=== PATIENT | female | born 1980 | race Caucasian/White ===

== ENCOUNTER 2021-11-24 04:50 | Day surgery (SDC) | payer OTHER ==
[2021-11-20 08:38] VITALS: BMI 26.4
[2021-11-24] MEDS ORDERED: LIDOCAINE HCL 1%, 10 MG/ML (20ML VIAL) ONE ×2 (10:37→12:55)
[2021-11-24] MEDS ORDERED: METHYLENE BLUE 50 MG/10 ML AMPUL ONE (10:37)
[2021-11-24] MEDS ORDERED: ISOSULFAN BLUE 50 MG/5 ML VIAL SQ ONE (10:38)
[2021-11-24] MEDS ORDERED: LIDOCAINE HCL/PF (2%) 40 MG/2 ML VIAL ONE (12:28)
[2021-11-24] MEDS ORDERED: PROPOFOL 20 ML ONE (12:28)
[2021-11-24] MEDS ORDERED: DEXAMETHASONE SOD PHOSPHATE 4 MG/1 ML VIAL ONE (12:28)
[2021-11-24] MEDS ORDERED: MIDAZOLAM HCL 2 MG/2 ML SINGLE DOSE VIAL ONE (12:29)
[2021-11-24] MEDS ORDERED: ceFAZolin SODIUM 1 GM VIAL ONE ×2 (12:29)
[2021-11-24] MEDS ORDERED: ONDANSETRON 4 MG/2 ML VIAL ONE ×2 (12:29→15:34)
[2021-11-24] MEDS ORDERED: SODIUM CHLORIDE 0.9% P/F 10 ML VIAL IJ ONE (12:30)
[2021-11-24] MEDS ORDERED: ONDANSETRON 4 MG/2 ML VIAL IVPUSH PRN (12:48)
[2021-11-24] MEDS ORDERED: LACTATED RINGERS SOLUTION 1,000 ML IV SCH (13:00)
[2021-11-24] MEDS ORDERED: ceFAZolin SODIUM 1 GM VIAL IVPB ONE (13:20)
[2021-11-24] MEDS ORDERED: LIDOCAINE HCL 1%, 10 MG/ML (20ML VIAL) INF ONE ×2 (13:24)
[2021-11-24] MEDS ORDERED: BACITRACIN 15 GM TUBE TOPICAL OINTMENT ONE (14:17)
[2021-11-24] MEDS ORDERED: BACITRACIN 15 GM TUBE TOPICAL OINTMENT TP ONE (14:40)
[2021-11-24 19:53] VITALS: BP 122/73; PULSE 80; RESP 16; TEMP 97.1
== END 2021-11-24 19:30 | disposition home or self-care (01) ==
LOC: JASU-SURG 04:50
PROVIDERS: ATTEND Surgery
PROC: 0HBU0ZX Excision of Left Breast, Open Approach, Diagnostic (ICD-10-PCS; principal; 2021-11-24 11:30)
DX: D24.2 Benign neoplasm of left breast (principal)
CPT/HCPCS: 19281; 19282; 76098-TC-FY; 81025; 88305-TC; 88307-TC; 94760; Q9968

== ENCOUNTER 2023-03-09 04:30 | Day surgery (SDC) | payer OTHER ==
[2023-02-18 17:23] VITALS: BMI 28.9
[2023-03-09] MEDS ORDERED: LIDOCAINE HCL 1%, 10 MG/ML (20ML VIAL) ONE (11:01)
[2023-03-09] MEDS ORDERED: ACETAMINOPHEN INJECTION 100 ML IVPB ONE (12:45)
[2023-03-09] MEDS ORDERED: MIDAZOLAM HCL 2 MG/2 ML SINGLE DOSE VIAL ONE (12:47)
[2023-03-09] MEDS ORDERED: SUCCINYLCHOLINE CHLORIDE 200 MG/10 ML SYRINGE ONE (12:47)
[2023-03-09] MEDS ORDERED: PROPOFOL 40 ML ONE (12:47)
[2023-03-09] MEDS ORDERED: ceFAZolin SODIUM 1 GM VIAL IVPB ONE (13:02)
[2023-03-09] MEDS ORDERED: LIDOCAINE HCL 1%, 10 MG/ML (50 mL VIAL) INF ONE ×3 (13:04→13:07)
[2023-03-09] MEDS ORDERED: HYDROmorphone HCl 2 MG/ML VIAL ONE (13:13)
[2023-03-09] MEDS ORDERED: ONDANSETRON 4 MG/2 ML VIAL ONE (13:15)
[2023-03-09] MEDS ORDERED: DEXAMETHASONE SOD PHOSPHATE 4 MG/1 ML VIAL ONE (13:15)
[2023-03-09] MEDS ORDERED: LIDOCAINE HCL/PF 2% SDV 5ML VIAL ONE (13:15)
[2023-03-09] MEDS ORDERED: ceFAZolin SODIUM 1 GM VIAL ONE (13:15)
[2023-03-09] MEDS ORDERED: SODIUM CHLORIDE 0.9% P/F 10 ML VIAL IJ ONE (13:15)
[2023-03-09] MEDS ORDERED: BACITRACIN ZINC 15 GM TUBE TOPICAL OINTMENT ONE (13:21)
[2023-03-09] MEDS ORDERED: BACITRACIN 0.9 GM PACKET TP ONE (13:22)
[2023-03-09] MEDS ORDERED: ONDANSETRON 4 MG/2 ML VIAL IVPUSH PRN (13:41)
[2023-03-09] MEDS ORDERED: oxyCODONE HCL 5 MG TABLET PO PRN (13:41)
[2023-03-09] MEDS ORDERED: LACTATED RINGERS SOLUTION 1,000 ML IV SCH (13:45)
[2023-03-09 14:53] VITALS: RESP 18
[2023-03-09 15:17] VITALS: BP 113/72; PULSE 88; TEMP 97.3
== END 2023-03-09 15:25 | disposition home or self-care (01) ==
LOC: JASU-SURG 04:30
PROVIDERS: ATTEND Surgery
PROC: 0HBT0ZX Excision of Right Breast, Open Approach, Diagnostic (ICD-10-PCS; principal; 2023-03-09 12:30)
DX: D24.1 Benign neoplasm of right breast (principal)
CPT/HCPCS: 19281; 76098-TC-FY; 81025; 94760